=== PATIENT | male | born 1965 | race Caucasian/White ===

== ENCOUNTER → 2018-04-13 | Outpatient (CLI) | payer BC, OTHER ==
[2018-04-13 08:56] LABS: HEMOGLOBIN 16.1 G/DL (13.3-17.7); MEAN PLATELET VOLUME 11.1 FL (7.4-10.4); RED BLOOD COUNT 4.76 10^6/uL (4.35-5.85); RED CELL DISTRIBUTION WIDTH 12.2 % (10.0-14.5); WHITE BLOOD COUNT 7.5 10^3/uL (4.3-11.0)
[2018-04-13 09:10] LABS: ALANINE AMINOTRANSFERASE 18 U/L (0-55); ALBUMIN 4.5 GM/DL (3.2-4.5); ALKALINE PHOSPHATASE 73 U/L (40-136); BILIRUBIN,TOTAL 0.4 MG/DL (0.1-1.0); BUN/CREATININE RATIO 11; CALCIUM 9.6 MG/DL (8.5-10.1); CARBON DIOXIDE 24 MMOL/L (21-32); CHLORIDE 105 MMOL/L (98-107); CHOLESTEROL 155 MG/DL (< 200); CREATININE SERUM 0.76 MG/DL (0.60-1.30); GFR ESTIMATED > 60; GLUCOSE 166 MG/DL (70-105); HDL CHOLESTEROL 26 MG/DL (40-60); POTASSIUM 4.3 MMOL/L (3.6-5.0); SODIUM 138 MMOL/L (135-145); TOTAL PROTEIN 6.9 GM/DL (6.4-8.2); TRIGLYCERIDES 410 MG/DL (<150)
== END ==
LOC: LAB 08:22
PROVIDERS: ATTEND Registered Nurse
DX: E11.9 Type 2 diabetes mellitus without complications (principal); I10 Essential (primary) hypertension; E78.5 Hyperlipidemia, unspecified; I25.10 Atherosclerotic heart disease of native coronary artery without angina pectoris; E66.9 Obesity, unspecified; Z72.0 Tobacco use
CPT/HCPCS: 36415; 80053; 80061; 83036; 85027

== ENCOUNTER 2018-06-17 09:11 | Outpatient (CLI) | payer OTHER ==
[~2018-06-17] VITALS: Ht 186.7 cm; Wt 107.5 kg
[2018-06-17] MEDS ORDERED: METO-370 PO (09:28)
[2018-06-17] MEDS ORDERED: LORA10TA7 PO (09:28)
[2018-06-17] MEDS ORDERED: CLOP75TA69 PO (09:28)
[2018-06-17] MEDS ORDERED: ASPI-808 PO (09:28)
[2018-06-17] MEDS ORDERED: LISI-556 PO (09:28)
[2018-06-17] MEDS ORDERED: METF-399 PO (09:28)
[2018-06-17] MEDS ORDERED: ROSU20TA PO (09:28)
[2018-06-18] MEDS ORDERED: OXYC1TAB87 PO (12:18)
== END 2018-06-17 09:41 | disposition home or self-care (01) ==
LOC: PREOP 09:11
PROVIDERS: ATTEND Surgery
DX: Z01.818 Encounter for other preprocedural examination (principal)

== ENCOUNTER 2018-06-18 07:54 | Day surgery (SDC) | payer OTHER ==
[~2018-06-18] VITALS: Ht 186.7 cm; Wt 107.5 kg
[~2018-06-18 07:54] MED LIST: ASPI-808 PO; CLOP75TA69 PO; LISI-556 PO; LORA10TA7 PO; METF-399 PO; METO-370 PO; ROSU20TA PO
[2018-06-18 08:15] VITALS: BP 152/97
[2018-06-18] MEDS: LACTATED RINGERS 1,000 ML IV PRN ×2 (08:30→11:04)
[2018-06-18] MEDS ORDERED: KETOROLAC 30 MG/ML VIAL IV SCH (08:45)
[2018-06-18] MEDS ORDERED: CELECOXIB 100 MG (CeleBREX) CAP PO ONE (08:45)
[2018-06-18] MEDS ORDERED: ceFAZolin 2 GM IV Premixed 50 ML IV ONE (08:45)
[2018-06-18] MEDS ORDERED: PREGABALIN 75 MG (LYRICA) CAP PO ONE (08:45)
[2018-06-18] MEDS ORDERED: ACETAMINOPHEN 500 MG TAB (TYLENOL) PO ONE (08:45)
[2018-06-18] MEDS ORDERED: oxyCODONE ER 10 MG (OxyCONTIN CR) TAB PO ONE (08:45)
[2018-06-18] MEDS ORDERED: morphine INJ 10 MG/ML 1ML (SYR OR VIAL) IV PRN (08:45)
[2018-06-18] MEDS ORDERED: ONDANSETRON 4 MG/2 ML (SDV) Z0FRAN ONE (09:15)
[2018-06-18] MEDS ORDERED: ROCURONIUM 10 MG/ML 5 ML SYRINGE IV ONE ×2 (09:15→11:56)
[2018-06-18] MEDS ORDERED: fentaNYL INJECTION 100 MCG/2 ML AMP ONE ×2 (09:15→11:51)
[2018-06-18] MEDS ORDERED: MIDAZOLAM 2 MG/2 ML (VERSED) VIAL ONE (09:15)
[2018-06-18] MEDS ORDERED: BUP/EPI 0.5% 1:200,000 (SENSORCAINE) 30 ML VIAL ONE (09:18)
[2018-06-18] MEDS ORDERED: ROPIVACAINE 5MG/ML 30ML VIAL ONE (09:21)
[2018-06-18] MEDS ORDERED: SEVOFLURANE (ULTANE) 15 ML INHAL SOLN ONE ×5 (09:21→12:09)
[2018-06-18] MEDS ORDERED: proPOfol 200 MG/20 ML (DIPRIVAN) VIAL IV ONE (09:32)
[2018-06-18] MEDS ORDERED: LIDOCAINE PF 2% 2 ML (XYLOCAINE) VIAL ONE (09:32)
--- NOTE | 2018-06-18 10:09 | Progress Note-Pre Operative ---
Pre-Operative Progress Note H&P Reviewed The H&P was reviewed, patient examined and no changes noted. Date Seen by Provider: May 23, 2018 Time Seen by Provider: 11:20 Date H&P Reviewed: Jun 18, 2018 Time H&P Reviewed: 10:09 Pre-Operative Diagnosis: Ventral Hernia MERARI VALDEZ MD Jun 18, 2018 10:09
--- NOTE | 2018-06-18 10:20 | History & Physicial ---
History of Present Illness History of Present Illness Reason for visit/HPI To undergo robotic assisted repair of ventral hernia with mesh Date of Admission 06/18/18 Date Seen by a Provider: Jun 18, 2018 Time Seen by a Provider: 10:18 I consulted on this patient on 06/18/18 10:17 Attending Physician Merari Valdez MD Admitting Physician No,Local Physician Consult Allergies and Home Medications Allergies Coded Allergies: fenofibrate (Verified Allergy, Mild, HOT FLASHES, 06/17/18) Home Medications Aspirin 325 Mg Tablet, 325 MG PO DAILY, (Reported) Clopidogrel Bisulfate 75 Mg Tablet, 75 MG PO DAILY, (Reported) Lisinopril 5 Mg Tablet, 5 MG PO DAILY, (Reported) Loratadine 10 Mg Tablet, PO DAILY, (Reported) Metformin HCl 1,000 Mg Tablet, 1,000 MG PO BID, (Reported) Metoprolol Succinate 50 Mg Tab.er.24h, 50 MG PO DAILY, (Reported) Rosuvastatin Calcium 20 Mg Tablet, 20 MG PO DAILY, (Reported) Patient Home Medication List Home Medication List Reviewed: Yes Past Qwfcgiz-Gxmgum-Usbptc Hx Patient Social History Marrital Status: Employed/Student: employed Alcohol Use: Occasionally Uses Recreational Drug Use: No Smoking Status: Current Everyday Smoker Type Used: Cigarettes Recent Foreign Travel: No Contact w/other who traveled: No Recent Hopitalizations: No Recent Infectious Disease Expo: No Seasonal Allergies Seasonal Allergies: Yes Surgeries Yes CABG Respiratory Yes Chronic Bronchitis Cardiovascular Yes Coronary Artery Disease, High Cholesterol, Hypertension Reproductive System Hx Reproductive Disorders: No Sexually Transmitted Disease: No HIV/AIDS: No Musculoskeletal Yes Arthritis HEENT Loss of Vision: Bilateral Hearing Impairment: Denies Blood Transfusions Adverse Reaction to a Blood Tr: No Review of Systems Constitutional: no symptoms reported Respiratory: no symptoms reported Cardiovascular: no symptoms reported Gastrointestinal: see HPI Genitourinary: no symptoms reported Musculoskeletal: joint pain Psychiatric/Neurological: No Symptoms Reported Physical Exam Vital Signs Vital Signs - First Documented 06/18/18 08:15 Temp 97.8 Pulse 71 Resp 16 B/P (MAP) 152/97 (115) Pulse Ox 99 O2 Delivery Room Air Capillary Refill : Height, Weight, BMI Height: 6'1.50" Weight: 237lbs. 0.0oz. 107.460504cv; 30.8 BMI Method: General Appearance: No Apparent Distress Respiratory: Lungs Clear Cardiovascular: Regular Rate, Rhythm Gastrointestinal: Non Tender, Hernia, Other Neurologic/Psychiatric: Alert, Oriented x3 Skin: Warm/Dry Comments Reducible hernia over the epigastric region Assessment/Plan Assessment and Plan Gentleman with a ventral hernia, for robotic assisted repair with mesh Admission Diagnosis Admission Status: Observation MERARI VALDEZ MD Jun 18, 2018 10:20
[2018-06-18] MEDS ORDERED: GLYCOPYRROLATE 0.2 MG/ML (ROBINUL) 2 ML VIAL ONE ×2 (11:00→12:00)
[2018-06-18] MEDS ORDERED: NEOSTIGMINE 1 MG/ML 5 ML SYRINGE ONE (12:00)
[2018-06-18 12:03] LABS: BASOPHILS % (AUTO) 0 % (0-10); EOSINOPHILS # (AUTO) 0.2 10^3/uL (0.0-0.3); EOSINOPHILS % (AUTO) 2 % (0-10); HEMATOCRIT 43 % (40-54); HEMOGLOBIN 15.8 G/DL (13.3-17.7); LYMPHOCYTES # (AUTO) 2.2 X 10^3 (1.0-4.0); LYMPHOCYTES % (AUTO) 22 % (12-44); MEAN CORPUSCULAR HEMOGLOBIN 35 PG (25-34); MEAN CORPUSCULAR HGB CONC 36 G/DL (32-36); MEAN CORPUSCULAR VOLUME 96 FL (80-99); MEAN PLATELET VOLUME 12.3 FL (7.4-10.4); MONOCYTES # (AUTO) 0.7 X 10^3 (0.0-1.0); MONOCYTES % (AUTO) 7 % (0-12); NEUTROPHILS # (AUTO) 6.7 X 10^3 (1.8-7.8); NEUTROPHILS % (AUTO) 68 % (42-75); PLATELET COUNT 175 10^3/uL (130-400); RED BLOOD COUNT 4.52 10^6/uL (4.35-5.85); RED CELL DISTRIBUTION WIDTH 12.2 % (10.0-14.5); WHITE BLOOD COUNT 9.8 10^3/uL (4.3-11.0)
--- NOTE | 2018-06-18 12:14 | Operative Report ---
Operative Report Date of Procedure/Surgery Jun 18, 2018 Surgeon (s) MERARI VALDEZ MD [place]erry Pilot (s): n/a Post-Operative Diagnosis Same Procedure Performed Robotic assisted repair with mesh Description of Procedure Anesthesia Type: General Estimated blood loss (mL): Minimal Specimen(s) collected/removed None Description of the Procedure Indication for the procedure: This gentleman presented with a symptomatic ventral hernia over his epigastric region, related to mediastinal chest tube was placed following coronary artery bypass graft. Due to symptoms, it is felt reasonable to offer repair using minimally invasive technique with robotic assistance and mesh reinforcement. Informed consent was obtained after reviewing the details of the procedure in complications of hematoma, infection of the mesh and cardiorespiratory dysfunction. Clearance was obtained from his quality assurance project manager regarding the safety of withholding antiplatelet drugs for 5 days prior to surgery. Description of procedure: He was placed supine on the operative table and general anesthesia induced. 2 g of Ancef was administered intravenously as prophylaxis against wound infection. Sequential compression devices were placed around his legs, to minimize the risk of venous thrombosis. Abdomen was prepared and draped in the usual sterile manner. Pneumoperitoneum was established using a Veress introduced over the right costal margin, along the mid clavicular line. Intra-abdominal pressure was maintained at 15 mmHg, using carbon dioxide insufflation. 12 mm trocar was placed and anatomy visualized using the high definition, 3-dimensional laparoscope, associated with da Oncodesign system. The defect measuring about 2 cm in diameter was found to the left of the falciform ligament. Under direct view, I placed another 12 mm trocar over the right side of the abdomen, along the anterior axillary line, followed by an 8 mm trocar over the right lower quadrant of the abdomen. The robotic system was then docked in place. Falciform ligament was taken down using the hook cautery, delineating the defect clearly. It was approximated using 0V LOC nonabsorbable sutures with the robotic assistance without creating much tension. The repair was then reinforced using polypropylene mesh measuring 11.4 cm in diameter, attached to a self-retaining balloon system. The edges of the mesh were secured to the abdominal musculature with 20V LOC sutures with robotic assistance. Hemostasis was satisfactory and the operation concluded. The fascia over the 12 mm incisions was closed using #1 Vicryl. Skin incisions were closed using 4-0 Vicryl, in a subcuticular fashion. 0.5 percent Marcaine with epinephrine was infiltrated along the incisions both preemptively and at the conclusion of the operation. He tolerated the procedure well, was extubated in the operative room and taken to the recovery room in a stable condition. Findings of the Procedure See operative report Allergies and Home Medications Allergies Coded Allergies: fenofibrate (Verified Allergy, Mild, HOT FLASHES, 06/17/18) Home Medications Aspirin 325 Mg Tablet, 325 MG PO DAILY, (Reported) Clopidogrel Bisulfate 75 Mg Tablet, 75 MG PO DAILY, (Reported) Lisinopril 5 Mg Tablet, 5 MG PO DAILY, (Reported) Loratadine 10 Mg Tablet, PO DAILY, (Reported) Metformin HCl 1,000 Mg Tablet, 1,000 MG PO BID, (Reported) Metoprolol Succinate 50 Mg Tab.er.24h, 50 MG PO DAILY, (Reported) Rosuvastatin Calcium 20 Mg Tablet, 20 MG PO DAILY, (Reported) Patient Home Medication List Home Medication List Reviewed: Yes MERARI VALDEZ MD Jun 18, 2018 12:14
[2018-06-18] MEDS ORDERED: ONDANSETRON 4 MG/2 ML (SDV) Z0FRAN IVP PRN ×2 (12:15→13:00)
[2018-06-18] MEDS ORDERED: oxyCODONE/APAP 5/325MG (PERCOCET 5) TABLET PO PRN (12:15)
[2018-06-18] MEDS ORDERED: fentaNYL INJECTION 100 MCG/2 ML AMP IV PRN (12:15)
[2018-06-18] MEDS ORDERED: PATIENT MAY USE OWN MEDS, ALL PO SCH (12:15)
[2018-06-18] MEDS ORDERED: OXYC1TAB87 PO (12:18)
--- NOTE | 2018-06-18 12:18 | Discharge Inst-Simple/Standard ---
Discharge Inst-Standard Discharge Medications New, Converted or Re-Newed RX: RX on Chart Patient Instructions/Follow Up Plan of Care/Instructions/FU: Band-Aids off in a.m. Incentive spirometry. Follow-up in 4 weeks Activity as Tolerated: No Goal: No lifting over 10 pounds Discharge Diet: ADA Diet MERARI VALDEZ MD Jun 18, 2018 12:18
[2018-06-18] MEDS ORDERED: MEPERIDINE (DEMEROL) INJ 50 MG/ML IVP ONE (13:00)
[2018-06-18] MEDS ORDERED: HYDROmorphone 2 MG/ML VIAL (DILAUDID) IV ONE (13:00)
[2018-06-18] MEDS ORDERED: morphine INJ 10 MG/ML 1ML (SYR OR VIAL) IVP ONE (13:00)
[2018-06-18] MEDS ORDERED: KETOROLAC 30 MG/ML VIAL ONE (13:20)
[2018-06-18] MEDS: LACTATED RINGERS 1,000 ML IV SCH ×2 (13:21→14:22)
--- NOTE | 2018-06-18 13:38 | Anesthesia-General Post-Op ---
General Patient Condition Mental Status/LOC: Same as Preop Cardiovascular: Satisfactory Nausea/Vomiting: Absent Respiratory: Satisfactory Pain: Controlled Complications: Absent Post Op Complications Complications None Follow Up Care/Instructions Patient Instructions None needed. Anesthesia/Patient Condition Patient Condition Patient is doing well, no complaints, stable vital signs, no apparent adverse anesthesia problems. No complications reported per nursing. PADMINI GODOY CRNA Jun 18, 2018 13:38
[2018-06-18 13:50] VITALS: BP 123/83
[2018-06-18] MEDS ORDERED: FLU QUADRIvalent (5+ YOA) 2018-2019 (AFLURIA) 0.5 ML IM ONE (16:15)
[2018-06-18] MEDS: inSUlin ASPART (NovoLOG) 1 UNIT/0.01 ML (CHARGE PER UNIT) SC SCH ×2 (16:25→20:53)
[2018-06-18 16:42] VITALS: BP 133/79
[2018-06-18] MEDS: KETOROLAC 30 MG/ML VIAL IV SCH (18:49)
[2018-06-18 20:13] VITALS: BP 147/86
[2018-06-19 00:02] VITALS: BP 116/79
[2018-06-19] MEDS: KETOROLAC 30 MG/ML VIAL IV SCH ×2 (01:15→06:12)
[2018-06-19] MEDS: LACTATED RINGERS 1,000 ML IV SCH (01:24)
[2018-06-19 04:35] VITALS: BP 102/58
[2018-06-19] MEDS: inSUlin ASPART (NovoLOG) 1 UNIT/0.01 ML (CHARGE PER UNIT) SC SCH (05:38)
[2018-06-19 08:00] VITALS: BP 107/71
== END 2018-06-19 10:34 | disposition home or self-care (01) ==
LOC: SDC 07:54 → 4TH 13:50 → SDC 06-19 10:34
PROVIDERS: ATTEND Surgery
DX: K43.9 Ventral hernia without obstruction or gangrene (principal); Z11.2 Encounter for screening for other bacterial diseases; F17.210 Nicotine dependence, cigarettes, uncomplicated; I25.10 Atherosclerotic heart disease of native coronary artery without angina pectoris; E78.00 Pure hypercholesterolemia, unspecified; I10 Essential (primary) hypertension; E78.5 Hyperlipidemia, unspecified; Z95.5 Presence of coronary angioplasty implant and graft; E11.9 Type 2 diabetes mellitus without complications; Z95.1 Presence of aortocoronary bypass graft; Z79.84 Long term (current) use of oral hypoglycemic drugs; Z79.82 Long term (current) use of aspirin; Z79.899 Other long term (current) drug therapy
CPT/HCPCS: 36415; 82962; 85025; 87081; 94664